=== PATIENT | male | born 1985 | race African-American/Black ===

== ENCOUNTER 2016-08-30 22:18 | Emergency (ER) | payer MEDICAID ==
[~2016-08-30] VITALS: Ht 177.8 cm; Wt 90.7 kg
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
[2016-08-30] MEDS ORDERED: Ketorolac 30mg Inj IV ONE (23:00)
[2016-08-30] MEDS ORDERED: DiphenhydrAMINE 50mg/ml Inj IVP ONE (23:00)
[2016-08-30] MEDS ORDERED: Metoclopramide 10mg/2ml Inj IVP ONE (23:00)
[2016-08-30] MEDS ORDERED: NORCO 5-325 TA1 EACH ORAL (23:54)
[2016-08-31 01:11] VITALS: BP 134/78
[2016-08-31 01:13] VITALS: BP 134/78
== END 2016-08-31 01:15 | disposition home or self-care (01) ==
LOC: EDBD 22:18 → EMR 22:38
DX: G43.909 Migraine, unspecified, not intractable, without status migrainosus (principal)
CPT/HCPCS: 96360; 96374; 96375; 99284; J1200; J1885; J2765